=== PATIENT | male | born 1955 | race Two or more races ===

== ENCOUNTER 2024-01-25 16:48 | Emergency (ER) | payer OTHER ==
[~2024-01-25] VITALS: Ht 175.3 cm; Wt 81.6 kg
[2024-01-25] MEDS ORDERED: METFORMIN HCL500 M3 PO (16:55)
[2024-01-25] MEDS ORDERED: LIPITOR20 MG PO (16:56)
[2024-01-25] MEDS ORDERED: GLIMEPIRIDE4 M1 PO (16:56)
[2024-01-25] MEDS ORDERED: KETOROLAC TROMETHAMINE 30 MG VIAL IM ONE (20:00)
== END 2024-01-25 22:11 | disposition home or self-care (01) ==
LOC: ER 16:49
DX: S82.191A Other fracture of upper end of right tibia, initial encounter for closed fracture (principal); W10.0XXA Fall (on)(from) escalator, initial encounter; Y93.89 Activity, other specified; Y92.018 Other place in single-family (private) house as the place of occurrence of the external cause
CPT/HCPCS: 29515; 73501; 73551; 73560; 73590; 73610; 73630; 96372; 99285; J1885